=== PATIENT | male | born 1955 | race Caucasian/White ===

== ENCOUNTER 2016-05-31 09:51 | Day surgery (SDC) | payer SELFPAY ==
--- NOTE | ~2016-05-31 | EGD ---
EGD REPORT [facility] [address] [place]. [id number] NAME: HERLINDA LONG : [birth year] STATUS : REG [facility] [place] PAT#: [id number] AGE: 61 ADM/REG DATE : 05/31/16 MR#: [id number] REPORT SERV DATE: 05/31/16 DICTATED BY: JOSE FRANCISCO DUMONT DATE: 05/31/16 REPORT STATUS : Draft [facility] DATE: 05/31/16 Endoscopy Center Patient Name: Herlinda Long Date of : 1955 Attending MD: JOSE FRANCISCO DUMONT MD Procedure Date No Time: 05/31/2016 Procedure: Colonoscopy Indications: Screening for colorectal malignant neoplasm Referring MD: JIM LEE MD Medicines: Monitored Anesthesia Care Complications: No immediate complications. Procedure: Pre-Anesthesia Assessment: - ASA Grade Assessment: III - A patient with severe systemic disease. After I obtained informed consent, the scope was passed under direct vision. Throughout the procedure, the patient's blood pressure, pulse, and oxygen saturations were monitored continuously. The CF [id number] was introduced through the anus and advanced to the cecum, identified by appendiceal orifice and ileocecal valve. The colonoscopy was performed with moderate difficulty due to significant looping and the patient's body habitus. Successful completion of the procedure was aided by applying abdominal pressure. The patient tolerated the procedure well. The quality of the bowel preparation was adequate. Findings: The digital rectal exam was normal. Pertinent negatives include no palpable rectal lesions. The terminal ileum appeared normal. A pedunculated polyp was found in the sigmoid colon. The polyp was 12 mm in size. The stalk of the polyp was injected with 1 cc of epi 1:10,000. The polyp was removed with a hot snare. Resection and retrieval were complete. Multiple diverticula were found in the sigmoid colon. Hemorrhoids were found during retroflexion and were moderate. Impression: - The examined portion of the ileum was normal. - One 12 mm polyp in the sigmoid colon. Resected and retrieved. - Diverticulosis in the sigmoid colon. - Hemorrhoids. Recommendation: - Patient has a contact number available for EGD REPORT [address] [address] NAME: HERLINDA LONG : [birth year] STATUS : REG [facility] [place] PAT#: [id number] AGE: 61 ADM/REG DATE : 05/31/16 MR#: [id number] REPORT SERV DATE: 05/31/16 DICTATED BY: JOSE FRANCISCO DUMONT DATE: 05/31/16 REPORT STATUS : Draft TRANSCRIBED BY: [employer] DATE: 05/31/16 emergencies. The signs and symptoms of potential delayed complications were discussed with the patient. Return to normal activities tomorrow. Written discharge instructions were provided to the patient. - Regular diet. - Continue present medications. - Repeat colonoscopy for surveillance based on pathology results. - Return to GI clinic in 2 months. Procedure Code(s): --- Professional --- 09153, Colonoscopy, flexible, proximal to splenic flexure; with removal of tumor(s), polyp(s), or other lesion(s) by snare technique Diagnosis Code(s): --- Professional --- K64.9, Unspecified hemorrhoids K57.30, Diverticulosis of large intestine without perforation or abscess without bleeding D12.5, Benign neoplasm of sigmoid colon Z12.11, Encounter for screening for malignant neoplasm of colon CPT copyright 2013 [employer]. All rights reserved. The codes documented in this report are preliminary and upon assistant women's soccer coach review may be revised to meet current compliance requirements. JOSE FRANCISCO DUMONT MD 05/31/2016 12:44 PM This report has been signed electronically. Number of Addenda: 0 Note Initiated On: 05/31/2016 12:01 PM Scope Withdrawal Time 0 hours 12 minutes 44 seconds [id number] [place] [id number]
--- NOTE | ~2016-05-31 | EGD ---
EGD REPORT [facility] [address] [address] NAME: HERLINDA LONG : [birth year] [place] [facility] [place] PAT#: [id number] AGE: 61 ADM/REG DATE : 05/31/16 MR#: [id number] REPORT SERV DATE: 05/31/16 DICTATED BY: JOSE FRANCISCO DUMONT DATE: 05/31/16 REPORT STATUS : Draft [facility] DATE: 05/31/16 Endoscopy Center Patient Name: Herlinda Long Date of : 1955 Attending MD: JOSE FRANCISCO DUMONT MD Procedure Date No Time: 05/31/2016 Procedure: Upper GI endoscopy Indications: Esophageal reflux Referring MD: JIM LEE MD Medicines: Monitored Anesthesia Care Complications: No immediate complications. Procedure: Pre-Anesthesia Assessment: - ASA Grade Assessment: III - A patient with severe systemic disease. After obtaining informed consent, the endoscope was passed under direct vision. Throughout the procedure, the patient's blood pressure, pulse, and oxygen saturations were monitored continuously. The GIF [id number] was introduced through the mouth, and advanced to the second part of duodenum. The upper GI endoscopy was accomplished without difficulty. The patient tolerated the procedure well. Findings: LA Grade C (one or more mucosal breaks continuous between tops of 2 or more mucosal folds, less than 75% circumference) esophagitis was found in the lower third of the esophagus. Biopsies were taken with a cold forceps for histology. A small hiatus hernia was present. Localized moderate inflammation characterized by erosions and erythema was found in the gastric antrum. Biopsies were taken with a cold forceps for histology. The cardia and gastric fundus were normal on retroflexion. Few non-bleeding superficial duodenal ulcers were found in the duodenal bulb and in the second part of the duodenum. The largest lesion was 10 mm in largest dimension. Biopsies were taken with a cold forceps for histology. Impression: - LA Grade C reflux esophagitis. Biopsied. - Hiatus hernia. - Gastritis. Biopsied. - Multiple duodenal ulcers with clean base. Biopsied. Recommendation: - Await pathology results. - Follow an antireflux regimen. EGD REPORT [address] [address] NAME: HERLINDA LONG : [birth year] [place] [facility] [place] PAT#: [id number] AGE: 61 ADM/REG DATE : 05/31/16 MR#: [id number] REPORT SERV DATE: 05/31/16 DICTATED BY: JOSE FRANCISCO DUMONT DATE: 05/31/16 REPORT STATUS : Draft TRANSCRIBED BY: [employer] DATE: 05/31/16 - Repeat the upper endoscopy for surveillance based on pathology results. Procedure Code(s): --- Professional --- 51504, Esophagogastroduodenoscopy, flexible, transoral; with biopsy, single or multiple Diagnosis Code(s): --- Professional --- K21.0, Gastro-esophageal reflux disease with esophagitis K44.9, Diaphragmatic hernia without obstruction or gangrene K29.70, Gastritis, unspecified, without bleeding K26.9, Duodenal ulcer, unspecified as acute or chronic, without hemorrhage or perforation CPT copyright 2013 [employer]. All rights reserved. The codes documented in this report are preliminary and upon branch customer service representative review may be revised to meet current compliance requirements. JOSE FRANCISCO DUMONT MD 05/31/2016 12:23 PM This report has been signed electronically. Number of Addenda: 0 Note Initiated On: 05/31/2016 12:05 PM Scope Withdrawal Time 0 hours 0 minutes 0 seconds [id number] [id number]
[~2016-05-31 09:51] MED LIST: DIOVAN HC1 PO; KLONO1 PO; LIPITOR40 PO; PROTONIX PO; RANITIDINE300 MG PO; SUCR PO; ZOL100 PO; ZYRTEC ALLGY10 MG PO
== END 2016-05-31 23:59 | disposition home or self-care (01) ==
LOC: DMU 09:51
PROVIDERS: Internal Medicine Gastroenterology
PROC: 0DB68ZX Excision of Stomach, Via Natural or Artificial Opening Endoscopic, Diagnostic (ICD-10-PCS; 2016-05-31)
PROC: 0DBN8ZX Excision of Sigmoid Colon, Via Natural or Artificial Opening Endoscopic, Diagnostic (ICD-10-PCS; principal; 2016-05-31 11:30)
PROC: 0DB98ZX Excision of Duodenum, Via Natural or Artificial Opening Endoscopic, Diagnostic (ICD-10-PCS; 2016-05-31 11:30)
PROC: 0DB38ZX Excision of Lower Esophagus, Via Natural or Artificial Opening Endoscopic, Diagnostic (ICD-10-PCS; 2016-05-31 11:30)
DX: Z12.11 Encounter for screening for malignant neoplasm of colon (principal); D12.5 Benign neoplasm of sigmoid colon; K22.70 Barrett's esophagus without dysplasia; K64.9 Unspecified hemorrhoids; K57.30 Diverticulosis of large intestine without perforation or abscess without bleeding; K44.9 Diaphragmatic hernia without obstruction or gangrene; E78.00 Pure hypercholesterolemia, unspecified; G47.33 Obstructive sleep apnea (adult) (pediatric); K21.9 Gastro-esophageal reflux disease without esophagitis; F41.9 Anxiety disorder, unspecified; I10 Essential (primary) hypertension; Z88.0 Allergy status to penicillin; Z88.1 Allergy status to other antibiotic agents; Z79.899 Other long term (current) drug therapy; Z90.89 Acquired absence of other organs; Z98.890 Other specified postprocedural states
CPT/HCPCS: 88305